=== PATIENT | female | born 1985 | race Caucasian/White ===

== ENCOUNTER 2021-03-02 14:10 | Observation (INO) ==
[2021-03-02] MEDS ORDERED: Naloxone 0.4 MG/ML INJ IVP PRN (20:51)
[2021-03-02] MEDS ORDERED: Ondansetron 4 MG/2 ML VIAL IVP PRN (20:51)
[2021-03-02] MEDS ORDERED: Ketorolac 30 MG/ML VIAL IVP PRN (20:55)
[2021-03-02] MEDS ORDERED: cefTRIAXone 1,000 MG in 0.9 % Sodium Chloride Mini Bag 100 ML IVPB SCH (21:00)
[2021-03-02] MEDS ORDERED: 0.9 % Sodium Chloride 1,000 ML IVC SCH (21:00)
[2021-03-03 01:57] LABS: Basophils % 0.2 %; Eosinophils % 0.3 %; Hematocrit 33.5 % (35.3-44.9); Hemoglobin 11.1 g/dL (11.5-15.4); Immature Granulocytes % 0.2 % (0-4); Lymphocytes # 1.9 K/mcL (0.6-4.6); Lymphocytes % 12.7 %; Mean Corpuscular HGB Conc 33.1 g/dL (31.6-35.5); Mean Corpuscular Hemoglobin 31.8 pg (28.0-33.3); Mean Platelet Volume 11.2 fL (9.4-12.4); Monocytes # 0.6 K/mcL (0.0-1.3); Monocytes % 4.3 %; Neutrophils # 12.2 K/mcL (1.6-8.9); Platelet Count 217 K/mcL (140-400); Red Blood Count 3.49 M/mcL (3.82-4.97); Red Cell Distribution Width 12.4 % (11.5-14.5); Segmented Neutrophils % 82.3 %; White Blood Count 14.8 K/mcL (4.3-11.1)
[2021-03-03 02:20] LABS: Alanine Aminotransferase 8 Units/L (7-52); Albumin 3.3 g/dL (3.5-5.7); Albumin/Globulin Ratio 1.5 (1.1-2.2); Alkaline Phosphatase 62 Units/L (34-104); Aspartate Amino Transferase 14 Units/L (13-39); BUN/Creatinine Ratio 13 (6-26); Bilirubin,Total 0.4 mg/dL (0.3-1.0); Blood Urea Nitrogen 10 mg/dL (6-20); Calcium 8.1 mg/dL (8.6-10.3); Carbon Dioxide 20 mEq/L (23-29); Chloride 102 mEq/L (98-107); Globulin 2.2 g/dL (2.4-3.5); Glucose 144 mg/dL (70-105); Osmolality,Calculated 280 (280-300); Potassium 3.6 mEq/L (3.5-5.1); Sodium 134 mEq/L (136-145); Total Protein 5.5 g/dL (6.4-8.9); eGFR For African Americans > 60 (> 60); eGFR For Non-African Americans > 60 (> 60)
[2021-03-03] MEDS ORDERED: Ondansetron 4 MG/2 ML VIAL ONE (07:02)
[2021-03-03] MEDS ORDERED: *HR* Succinylcholine 200 MG/10 ML VIAL IVP ONE (07:02)
[2021-03-03] MEDS ORDERED: *HR* Propofol 200 MG/20 ML VIAL IVP ONE (07:02)
[2021-03-03] MEDS ORDERED: *HR* FentaNYL (PF) 100 MCG/2 ML VIAL ONE ×2 (07:02→11:51)
[2021-03-03] MEDS ORDERED: *HR* Rocuronium Bromide 50 MG/5 ML VIAL ONE (07:02)
[2021-03-03] MEDS ORDERED: Lidocaine -MPF 4% 5 ML AMPUL ONE (07:02)
[2021-03-03] MEDS ORDERED: Lidocaine -MPF 2% 2 ML VIAL ONE (07:02)
[2021-03-03] MEDS ORDERED: *HR* Midazolam HCl 2 MG/2 ML VIAL ONE (07:02)
[2021-03-03] MEDS ORDERED: Ondansetron 4 MG/2 ML VIAL IVP PRN ×2 (07:15→09:02)
[2021-03-03] MEDS ORDERED: *HR* OxyCODONE Immed Rel 5 MG TABLET PO PRN (07:15)
[2021-03-03] MEDS ORDERED: Albuterol 2.5 MG/3 ML NEBULIZER IH PRN (07:15)
[2021-03-03] MEDS ORDERED: Isovue-300 50ML VIAL ONE (07:18)
[2021-03-03] MEDS ORDERED: Acetaminophen IV 1,000 MG/100 ML BAG IVPB ONE (07:26)
[2021-03-03] MEDS: *HR* HYDROmorphone PF 0.5 MG/0.5 ML SYRINGE IVP PRN ×2 (08:10→08:18)
[2021-03-03] MEDS ORDERED: Naloxone 0.4 MG/ML INJ IVP PRN (09:02)
[2021-03-03] MEDS ORDERED: Ketorolac 30 MG/ML VIAL IVP PRN (09:02)
[2021-03-03] MEDS ORDERED: Heparin 1,000 UNITS/500 mL 0 ML ONE (09:58)
[2021-03-03 10:00] VITALS: BP 107/64
[2021-03-03] MEDS ORDERED: *HR* Phenylephrine 10 MG/ML VIAL ONE (11:36)
[2021-03-04] MEDS ORDERED: cefTRIAXone 1,000 MG in 0.9 % Sodium Chloride Mini Bag 100 ML IVPB SCH (09:00)
== END 2021-03-03 11:06 | disposition home or self-care (01) ==
LOC: 3BNU
PROVIDERS: ADMIT Internal Medicine; ATTEND Internal Medicine